=== PATIENT | female | born 1940 | race Caucasian/White ===

== ENCOUNTER → 2017-03-20 | Outpatient (CLI) | payer MEDICARE, BC ==
--- NOTE | 2017-03-21 08:54 | MM ---
Reason for exam: screening (asymptomatic). Last mammogram was performed 1 year ago. History: Patient is postmenopausal. Benign US left guided VAD of the left breast, September 01, 2008. Benign stereotactic core biopsy of the right breast, January 12, 2001. Benign core biopsy of the right breast. Benign excisional biopsy of the right breast. Took estrogen for 12 years beginning at age 49. Took progesterone for 12 years beginning at age 49. Physical Findings: A clinical breast exam by your physician is recommended on an annual basis and results should be correlated with mammographic findings. MG 3D Screening Mammo W/Cad Bilateral CC and MLO view(s) were taken. Prior study comparison: March 17, 2016, bilateral MG 3d screening mammo w/cad. March 11, 2015, bilateral MG screening mammo w CAD. Previous mammotome biopsy in the right and left breast. Stable asymmetric density in the right upper outer quadrant. ASSESSMENT: Benign, BI-RAD 2 RECOMMENDATION: Routine screening mammogram of both breasts in 1 year.
== END | disposition home or self-care (01) ==
LOC: RADMAMWWP 10:55
PROVIDERS: ATTEND Obstetrics & Gynecology
DX: Z12.31 Encounter for screening mammogram for malignant neoplasm of breast (principal)
CPT/HCPCS: 77063; G0202

== ENCOUNTER → 2018-05-21 | Outpatient (CLI) | payer MEDICARE, BC ==
--- NOTE | 2018-05-23 10:59 | MM ---
Reason for exam: screening (asymptomatic). Last mammogram was performed 1 year and 2 months ago. History: Patient is postmenopausal. Benign US left guided VAD of the left breast, September 01, 2008. Benign stereotactic core biopsy of the right breast, January 12, 2001. Benign core biopsy of the right breast. Benign excisional biopsy of the right breast. Took estrogen for 12 years beginning at age 49. Took progesterone for 12 years beginning at age 49. Physical Findings: A clinical breast exam by your physician is recommended on an annual basis and results should be correlated with mammographic findings. MG 3D Screening Mammo W/Cad Bilateral CC and MLO view(s) were taken. Prior study comparison: March 20, 2017, bilateral MG 3d screening mammo w/cad. March 17, 2016, bilateral MG 3d screening mammo w/cad. There are scattered fibroglandular densities. Previous mammotome biopsy in the right and left breast. Focal asymmetry in the right upper outer quadrants, unchanged. No significant changes when compared with prior studies. ASSESSMENT: Negative, BI-RAD 1 RECOMMENDATION: Routine screening mammogram of both breasts in 1 year.
== END | disposition home or self-care (01) ==
LOC: RADMAMWWP 14:39
PROVIDERS: ATTEND Obstetrics & Gynecology
DX: Z12.31 Encounter for screening mammogram for malignant neoplasm of breast (principal)
CPT/HCPCS: 77063; 77067

== ENCOUNTER → 2019-06-21 | Outpatient (CLI) | payer MEDICARE, BC ==
--- NOTE | 2019-06-24 14:09 | MM ---
Reason for exam: screening (asymptomatic). Last mammogram was performed 1 year and 1 month ago. History: Patient is postmenopausal. Benign US left guided VAD of the left breast, September 01, 2008. Benign stereotactic core biopsy of the right breast, January 12, 2001. Benign core biopsy of the right breast. Benign excisional biopsy of the right breast. Took estrogen for 12 years beginning at age 49. Took progesterone for 12 years beginning at age 49. Physical Findings: A clinical breast exam by your physician is recommended on an annual basis and results should be correlated with mammographic findings. MG 3D Screening Mammo W/Cad Bilateral CC and MLO view(s) were taken. XCCL view(s) were taken of the right breast. Prior study comparison: May 21, 2018, bilateral MG 3d screening mammo w/cad. March 20, 2017, bilateral MG 3d screening mammo w/cad. The breast tissue is heterogeneously dense. This may lower the sensitivity of mammography. There are benign appearing round calcifications in the right breast. Previous mammotome biopsy in the right and left breast. Asymmetric breast tissue right upper stable outer aspect. There is no discrete abnormality. Benign vascular calcifications in the left breast. ASSESSMENT: Benign, BI-RAD 2 RECOMMENDATION: Routine screening mammogram of both breasts in 1 year.
== END | disposition home or self-care (01) ==
LOC: RADMAMWWP 11:33
PROVIDERS: ATTEND Obstetrics & Gynecology
DX: Z12.31 Encounter for screening mammogram for malignant neoplasm of breast (principal)
CPT/HCPCS: 77063; 77067

== ENCOUNTER → 2021-11-19 | Outpatient (CLI) | payer MEDICARE, BC ==
--- NOTE | 2021-11-19 14:06 | BD ---
EXAMINATION TYPE: Axial Bone Density DATE OF EXAM: 11/19/2021 COMPARISON: FIRST BONE DENSITY AT [facility].... CLINICAL HISTORY: 80 years year old Female. ICD-10 CODE: OSTEOPOROSIS M810 Height: 61.8 Weight: 118 FRAX RISK QUESTIONS: History of Fracture in Adulthood: YES RISK FACTORS HISTORY OF: LT ANKLE FRACTURE THIS YEAR, CASTED Family History of Osteoporosis: UNKNOWN Postmenopausal woman: YES, AT AGE 49 YRS OLD Take estrogen and/or progesterone medications: YES, FOR ABOUT 10 YRS, NONE NOW Hyperparathyroidism: NO Adrenal Insufficiency: NO MEDICATIONS: Additional Medications: BP MEDS, XANAX, REFLUX MEDS, CHOLESTEROL MEDS, CALCIUM AND MULTIVITAMIN Additional History: HYPERTENSION, ANXIETY, REFLUX, CHOLESTEROL, ARTHRITIS EXAM MEASUREMENTS: Bone mineral densitometry was performed using the [employer] System. Bone mineral density as measured about the Lumbar spine is: ----- L1-L4(G/cm2): 0.987 T Score Values are as follows: ----- L1: -1.8 ----- L2: -1.5 ----- L3: -1.6 ----- L4: -1.8 ----- L1-L4: -1.6 Bone mineral density FIRST AT [facility] Bone mineral density about the R hip (g/cm2): 0.686 Bone mineral density about the L hip (g/cm2): 0.676 T Score values are as follows: -----R Neck: -2.3 -----L Neck: -2.3 -----R Total: -2.6 -----L Total: -2.6 Bone mineral density NEW TO [facility] FRAX%s: The graph provided illustrates a 22.8% chance for a major osteoporotic fx and a 7.2% chance f or the hips probability for fx in 10 years time. IMPRESSION: Osteoporosis NOTE: T-SCORE=SD OF THE YOUNG ADULT MEAN.
--- NOTE | 2021-11-22 11:45 | MM ---
Reason for Exam: Screening (asymptomatic). Last mammogram was performed 2 year(s) and 5 month(s) ago. Patient History: Menarche at age 13. First Full-Term at age 25. Postmenopausal. Estrogen for 12 years from age 49 until age 61. Progesterone for 12 years from age 49 until age 61. Benign Core Biopsy on the right side. Benign Excisional Biopsy on the right side. 09/01/2008, Benign Core Biopsy on the left side. 01/12/2001, Benign Stereotactic Core Biopsy on the right side. Risk Values: Lorena 5 year model risk: 2.5%. NCI Lifetime model risk: 4.5%. Prior Study Comparison: 03/20/2017 Bilateral Screening Mammogram, [facility]. 05/21/2018 Bilateral Screening Mammogram, [facility]. 06/21/2019 Bilateral Screening Mammogram, [facility]. Tissue Density: The breast tissue is heterogeneously dense. This may lower the sensitivity of mammography. Findings: Analyzed By CAD. There is no suspicious group of microcalcifications or new suspicious mass in either breast. Stable asymmetric breast tissue upper outer right breast. Overall Assessment: Benign, BI-RAD 2 Management: Screening Mammogram of both breasts in 1 year. A clinical breast exam by your physician is recommended on an annual basis and results should be correlated with mammographic findings. Electronically signed and approved by: Shiv Antonio M.D. Radiologis
== END | disposition home or self-care (01) ==
LOC: RADBDWWP 12:53
PROVIDERS: ATTEND Internal Medicine Geriatric Medicine
DX: Z12.31 Encounter for screening mammogram for malignant neoplasm of breast (principal); M81.0 Age-related osteoporosis without current pathological fracture
CPT/HCPCS: 77063; 77067; 77080

== ENCOUNTER → 2022-09-05 | Outpatient (CLI) | payer MEDICARE, BC ==
--- NOTE | 2022-09-06 07:20 | MR ---
EXAMINATION TYPE: MR iac wo/w con DATE OF EXAM: 09/05/2022 COMPARISON: CT brain July 10, 2022 HISTORY: Bilateral ear pain, hearing loss TECHNIQUE: Multiplanar, multisequence images of the brain and brainstem is performed without and with IV contras t, utilizing 5.5 mL intravenous Gadavist . FINDINGS: Diffusion weighted images demonstrate no evidence of a recent infarct or other diffusion ab normality. There is mild ventricular and sulcal prominence. No significant white matter changes. No s uspicious extra-axial fluid collection. Midline structures demonstrate normal morphology. The craniocervical junction appears within normal limits. Normal vascular signal voids are seen. The visualized sinuses are clear and the globes are in tact. Patchy fluid in the left mastoid air cells is present. The vestibulocochlear complexes are symmetric and felt within normal limits. There is no suspicious enhancing cerebellopontine angle mass identifie d bilaterally. IMPRESSION: 1. Patchy fluid left mastoid air cells raises concern for left-sided mastoiditis in the appropriate c linical setting, correlate clinically.
== END | disposition home or self-care (01) ==
LOC: RADMRIMAIN 15:09
PROVIDERS: ATTEND Otolaryngology
DX: H91.92 Unspecified hearing loss, left ear (principal)
CPT/HCPCS: 70553; A9585

== ENCOUNTER → 2022-11-22 | Outpatient (CLI) | payer MEDICARE, BC ==
--- NOTE | 2022-11-23 16:36 | MM ---
Reason for Exam: Screening (asymptomatic). Last screening mammogram was performed 12 month(s) ago. Patient History: Menarche at age 13. First Full-Term at age 25. Postmenopausal. Estrogen for 12 years from age 49 until age 61. Progesterone for 12 years from age 49 until age 61. Benign Core Biopsy on the right side. Benign Excisional Biopsy on the right side. 09/01/2008, Benign Core Biopsy on the left side. 01/12/2001, Benign Stereotactic Core Biopsy on the right side. Risk Values: Lorena 5 year model risk: 2.5%. NCI Lifetime model risk: 4.1%. Prior Study Comparison: 05/21/2018 Bilateral Screening Mammogram, [facility]. 06/21/2019 Bilateral Screening Mammogram, [facility]. 11/19/2021 Bilateral MG 3D screening mammo w/cad, [facility]. Tissue Density: There are scattered fibroglandular densities. Findings: Analyzed By CAD. Pattern appears stable. Focal asymmetries are outer aspects of bilateral breast. Core markers within the outer left breast upper portion of the right breast. No suspicious groups of microcalcifications, spiculated or lobular masses, architectural distortion or other secondary signs of malignancy are mammographically apparent. Overall Assessment: Benign, BI-RAD 2 Management: Screening Mammogram of both breasts in 1 year. A negative mammogram report should not preclude additional follow up of suspicious palpable abnormalities. Patient should continue monthly self breast exam. A clinical breast exam by your physician is recommended on an annual basis and results should be correlated with mammographic findings. Electronically signed and approved by: Yasir Graves D.O. Radiologis
== END | disposition home or self-care (01) ==
LOC: RADMAMWWP 13:06
PROVIDERS: ATTEND Internal Medicine Geriatric Medicine
DX: Z12.31 Encounter for screening mammogram for malignant neoplasm of breast (principal); Z78.0 Asymptomatic menopausal state
CPT/HCPCS: 77063; 77067

== ENCOUNTER → 2023-11-24 | Outpatient (CLI) | payer MEDICARE, BC ==
--- NOTE | 2023-11-27 13:23 | MM ---
Reason for Exam: Screening (asymptomatic). Last screening mammogram was performed 12 month(s) ago. Patient History: Menarche at age 13. First Full-Term at age 25. Postmenopausal. Estrogen for 12 years from age 49 until age 61. Progesterone for 12 years from age 49 until age 61. Benign Core Biopsy on the right side. Benign Excisional Biopsy on the right side. 09/01/2008, Benign Core Biopsy on the left side. 01/12/2001, Benign Stereotactic Core Biopsy on the right side. Risk Values: Lorena 5 year model risk: 2.4%. NCI Lifetime model risk: 3.7%. Prior Study Comparison: 06/21/2019 Bilateral Screening Mammogram, [facility]. 11/19/2021 Bilateral MG 3D screening mammo w/cad, [facility]. 11/22/2022 Bilateral MG 3D screening mammo w/cad, [facility]. Tissue Density: There are scattered areas of fibroglandular density. Findings: Analyzed By CAD. Bilateral breast biopsy clips. Right breast: There is no suspicious group of microcalcifications or new suspicious mass. Left breast: There is no suspicious group of microcalcifications or new suspicious mass. Overall Assessment: Negative, BI-RAD 1 Management: Screening Mammogram of both breasts in [address] [facility] will attempt to contact patient to return for supplemental views and ultrasound if indicated. Patient should continue monthly self-breast exams. A clinical breast exam by your physician is recommended on an annual basis. This exam should not preclude additional follow-up of suspicious palpable abnormalities. Note on Lorena scores and lifetime risk: 1. A Lorena score greater than 3% is considered moderate risk. If this is the case, consider specialist referral to assess eligibility for a risk reducing agent. 2. If overall lifetime risk for the development of breast cancer is 20% or higher, the patient may qualify for future screening with alternating mammogram and breast MRI. Electronically signed and approved by: David Prakash DO
--- NOTE | 2023-11-28 15:40 | BD ---
EXAMINATION TYPE: Axial Bone Density DATE OF EXAM: 11/24/2023 CLINICAL HISTORY: 82 years old Female. ICD-10 CODE: M81.0 AGE RELATED OSTEO Height: 61.25" Weight: 122.8lbs FRAX RISK QUESTIONS: Alcohol (3 or more units per day): No Family History (Parent hip fracture): Unknown Glucocorticoids (More than 3mos): No (Ex: prednisone, prednisolone, methylprednisolone, dexamethasone, and hydrocortisone). History of Fracture in Adulthood: No Secondary Osteoporosis: 1. Type 1 Diabetes: No 2. Hyperthyroidism: No 3. Menopause before 45: No 4. Malnutrition: No 5. Chronic liver disease: No Rheumatoid Arthritis: No Current Tobacco Use: No RISK FACTORS HISTORY OF: Hip Fracture (Right/Left): No Spine Fracture: No History of Wrist Fracture: No Surgery to Spine/Hip(right/left)/Wrist (right/left): No MEDICATIONS: Thyroid Medications: No Osteoporosis Medications: No EXAM MEASUREMENTS: Bone mineral densitometry was performed using the [employer] System. Bone mineral density as measured about the Lumbar spine is: ----- L1-L4(G/cm2): 0.995 T Score Values are as follows: ----- L1: -1.8 ----- L2: -1.6 ----- L3: -1.0 ----- L4: -1.9 ----- L1-L4: -1.5 Z Score Values are as follows: ----- L1: 0.3 ----- L2: 0.6 ----- L3: 1.2 ----- L4: 0.3 ----- L1-L4: 0.6 Bone mineral density has: increase 0.8% since study of: 11/19/2021 Bone mineral density about the R hip (g/cm2): 0.709 Bone mineral density about the L hip (g/cm2): 0.689 T Score values are as follows: -----R Neck: -2.2 -----L Neck: -2.0 -----R Total: -2.4 -----L Total: -2.5 Z Score values are as follows: -----R Neck: 0.2 -----L Neck: 0.4 -----R Total: -0.1 -----L Total: -0.3 Bone mineral density has: increased 2.6% since study of: 11/19/2021 FRAX%s: The graph provided illustrates a 16.4% chance for a major osteoporotic fx and a 5.5% chance f or the hips probability for fx in 10 years time. IMPRESSION: Osteoporosis (T Score less than -2.5). There is increased fracture risk and therapy is usually indicated based on age. Re-Screen 1-2 years. NOTE: T-SCORE=SD OF THE YOUNG ADULT MEAN.
== END | disposition home or self-care (01) ==
LOC: RADMAMWWP 13:48
PROVIDERS: ATTEND Internal Medicine Geriatric Medicine
DX: Z12.31 Encounter for screening mammogram for malignant neoplasm of breast (principal); M85.89 Other specified disorders of bone density and structure, multiple sites; M81.0 Age-related osteoporosis without current pathological fracture; Z78.0 Asymptomatic menopausal state
CPT/HCPCS: 77063; 77067; 77080

== ENCOUNTER 2024-07-17 04:57 | Emergency (ER) | payer MEDICARE, BC ==
[2024-07-17 05:10] VITALS: RESP 18
[2024-07-17] MEDS: DIPH,PERTUS(ACELL)TETVAC-LF 0.5 ML VIAL IM ONE (06:05)
[2024-07-17] MEDS: ACETAMINOPHEN TAB 325 MG TAB PO STA (06:07)
[2024-07-17] MEDS: LIDOCAINE 1% INJ 10MG/ML (20 ML MDV) SQ ONE (06:13)
--- NOTE | 2024-07-17 06:15 | CT ---
EXAMINATION TYPE: CT brain cspine wo con DATE OF EXAM: 07/17/2024 COMPARISON: CT brain July 10, 2022 HISTORY: Pt had a fall, laceration to left ear. No LOC or thinners. Headache and neck pain. CT DLP: 1300.6 mGycm. Automated Exposure Control for Dose Reduction was Utilized. TECHNIQUE: CT scan of the head and cervical spine are performed without contrast. FINDINGS: There is no acute intracranial hemorrhage or midline shift identified. [id number] v entricle and sulcal prominence is redemonstrated. Huerta-white matter differentiation appears well main tained. The calvarium is intact. 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 The visualized sinuses are domingo r. Cervical spine is visualized in its entirety from C1 through upper thoracic levels and demonstrates s atisfactory alignment without evidence of acute fracture or dislocation. Prevertebral soft tissue ap pears within normal limits. The C1-C2 articulation is within normal limits on the coronal images. V ertebral body heights are maintained. There is moderate disc space narrowing and disc calcification a t C4-C5 and C6-C7 levels. Axial images show multilevel bilateral facet degenerative changes. Endplate is within normal limits. Lung apices show no pneumothorax. IMPRESSION: 1. There is no acute fracture or dislocation evident in the cervical spine. 2. No acute intracranial hemorrhage or midline shift is seen. [facility], , 07/17/2024 6:13 AM
--- NOTE | 2024-07-17 06:35 | ED ---
Fall HPI - General Chief Complaint: Fall Stated Complaint: Fall- ear laceration Time Seen by Provider: 07/17/24 05:21 Source: patient Mode of arrival: wheelchair - Related Data Home Medications Medication Instructions Recorded Confirmed Omeprazole [PriLOSEC] 20 mg PO BID 05/17/14 10/15/21 Atorvastatin [Lipitor] 40 mg PO DAILY 10/15/21 10/15/21 LORazepam [Ativan] 0.5 mg PO HS 10/15/21 10/15/21 Metoprolol Succinate [Toprol XL] 25 mg PO DAILY 10/15/21 10/15/21 Promethazine HCl 12.5 mg PO BID 10/15/21 10/15/21 Vortioxetine Hydrobromide 20 mg PO DAILY 10/15/21 10/15/21 [Trintellix] polyethylene glycoL 3350 [Miralax] 17 gm PO DAILY 10/15/21 10/15/21 traZODone HCL 100 mg PO HS 10/15/21 10/15/21 Allergies Allergy/AdvReac Type Severity Reaction Status Date / Time lamotrigine [From Lamictal] Allergy Unknown Verified 07/10/22 09:42 latex Allergy Swelling, Verified 07/10/22 09:42 redness aripiprazole [From Abilify] AdvReac Intermediate Unknown Verified 07/10/22 09:42 bismuth subsalicylate AdvReac Nausea & Verified 07/10/22 09:42 [From Helidac] Vomiting metronidazole [From Helidac] AdvReac Nausea & Verified 07/10/22 09:42 Vomiting tetracycline HCl AdvReac Nausea & Verified 07/10/22 09:42 [From Helidac] Vomiting Review of Systems ROS Statement: Those systems with pertinent positive or pertinent negative responses have been documented in the HPI. ROS Other: All systems not noted in ROS Statement are negative. Past Medical History Past Medical History: GERD/Reflux, Hyperlipidemia, Skin Disorder Additional Past Medical History / Comment(s): fell yesterday & hit shepard-covered w/bandage History of Any Multi-Drug Resistant Organisms: None Reported Past Surgical History: Section, Hernia Repair, Tonsillectomy Past Anesthesia/Blood Transfusion Reactions: No Reported Reaction Past Psychological History: Anxiety, Bipolar, Depression Smoking Status: Never smoker Past Alcohol Use History: None Reported Past Drug Use History: None Reported - Past Family History Father History Unknown: Yes Mother History Unknown: Yes General Exam Limitations: no limitations Course Vital Signs 07/17/24 05:06 Temperature 97.6 F Pulse Rate 78 Respiratory 18 Rate Blood Pressure 164/91 O2 Sat by Pulse 99 Oximetry Procedures - Laceration Laceration #1 Consent Obtained: verbal consent Indication: laceration Site: other (ear) Size (cm): 1 Description: linear Depth: simple, single layer Anesthetic Used: lidocaine 1%, without epi Anesthesia Technique: local infiltration Amount (mls): 1 Pre-repair: wound explored, irrigated extensively, deep structures intact Type of Sutures: nylon Size of Sutures: 5-0 Number of Sutures: 3 Technique: simple, interrupted Patient Tolerated Procedure: well Disposition Referrals: Jorge Negron MD [Primary Care Provider] - 1-2 days
--- NOTE | 2024-07-17 06:36 | ED ---
General Adult HPI - General Chief complaint: Fall Stated complaint: Fall- ear laceration Time Seen by Provider: 07/17/24 05:21 Source: patient Mode of arrival: wheelchair Limitations: no limitations - History of Present Illness Initial comments: Patient is an 83-year-old female presenting with her daughter today for ear laceration after ground-level fall at home. Patient tripped and fell, hitting the side of her head on the edge of a countertop just prior to arrival. She did not lose consciousness and sustained a left ear laceration. + Mild MATTHEWS. Denies additional injury or neck pain. Denies changes in vision, numbness, dizziness, slurred speech weakness. She is at her baseline. Is not on blood thinners. - Related Data Home Medications Medication Instructions Recorded Confirmed Omeprazole [PriLOSEC] 20 mg PO BID 05/17/14 10/15/21 Atorvastatin [Lipitor] 40 mg PO DAILY 10/15/21 10/15/21 LORazepam [Ativan] 0.5 mg PO HS 10/15/21 10/15/21 Metoprolol Succinate [Toprol XL] 25 mg PO DAILY 10/15/21 10/15/21 Promethazine HCl 12.5 mg PO BID 10/15/21 10/15/21 Vortioxetine Hydrobromide 20 mg PO DAILY 10/15/21 10/15/21 [Trintellix] polyethylene glycoL 3350 [Miralax] 17 gm PO DAILY 10/15/21 10/15/21 traZODone HCL 100 mg PO HS 10/15/21 10/15/21 Allergies Allergy/AdvReac Type Severity Reaction Status Date / Time lamotrigine [From Lamictal] Allergy Unknown Verified 07/10/22 09:42 latex Allergy Swelling, Verified 07/10/22 09:42 redness aripiprazole [From Abilify] AdvReac Intermediate Unknown Verified 07/10/22 09:42 bismuth subsalicylate AdvReac Nausea & Verified 07/10/22 09:42 [From Helidac] Vomiting metronidazole [From Helidac] AdvReac Nausea & Verified 07/10/22 09:42 Vomiting tetracycline HCl AdvReac Nausea & Verified 07/10/22 09:42 [From Helidac] Vomiting Review of Systems ROS Statement: Those systems with pertinent positive or pertinent negative responses have been documented in the HPI. ROS Other: All systems not noted in ROS Statement are negative. Past Medical History Past Medical History: GERD/Reflux, Hyperlipidemia, Skin Disorder Additional Past Medical History / Comment(s): fell yesterday & hit shepard-covered w/bandage History of Any Multi-Drug Resistant Organisms: None Reported Past Surgical History: Section, Hernia Repair, Tonsillectomy Past Anesthesia/Blood Transfusion Reactions: No Reported Reaction Past Psychological History: Anxiety, Bipolar, Depression Smoking Status: Never smoker Past Alcohol Use History: None Reported Past Drug Use History: None Reported - Past Family History Father History Unknown: Yes Mother History Unknown: Yes General Exam - General Exam Comments Initial Comments: PE: CONSTITUTIONAL: No apparent distress, well appearing SKIN: Warm, dry, no jaundice, hives or petechiae. Small half centimeter to 1 cm fill thickness laceration edge of the left ear mid-pinna, small skin tear to the left forearm EYES: Pupils are equally round, extraocular movements intact without nystagmus, clear conjunctiva, non-icteric sclera HENT: Normocephalic, small contusion just posterior to left ear, no palpable step offs, no hemotypanum , moist mucus membranes, oropharynx clear without exudates NECK: , Full range of motion, normal appearance, no midline spinal tenderness to palpation PULMONARY: Clear to auscultation without wheezes, rhonchi, or rales, normal excursion, no accessory muscle use and no stridor CARDIOVASCULAR: Regular rate, rhythm, normal S1 and S2. No appreciated murmurs, rubs or gallops. Strong radial pulses with intact distal perfusion. No lower extremity edema GASTROINTESTINAL: Soft, active bowel sounds throughout, non-tender, non- distended, no palpable masses, no rebound or guarding. No hepatosplenomegaly MUSCULOSKELETAL: Extremities have no gross deformity or tenderness palpation NEUROLOGIC:_a/o x 3, GCS 15, normal mentation and speech. Moves all extremities x 4 without motor or sensory deficit PSYCHIATRIC:_normal mood and affect, thought process is clear and linear Limitations: no limitations Course Vital Signs 07/17/24 07/17/24 05:06 06:46 Temperature 97.6 F 97.8 F Pulse Rate 78 76 Respiratory 18 18 Rate Blood Pressure 164/91 144/79 O2 Sat by Pulse 99 98 Oximetry Medical Decision Making - Medical Decision Making Was pt. sent in by a medical professional or institution (MARISA Doll, CERTIFIED RECREATIONAL THERAPIST, urgent care, hospital, or intermediate...) When possible be specific @ -No Did you speak to anyone other than the patient for history (EMS, parent, family, police, friend...)? What history was obtained from this source @ -No Did you review nursing and triage notes (agree or disagree)? Why? @ -I reviewed nursing and triage notes Were old charts reviewed (outside hosp., previous admission, EMS record, old EKG, old radiological studies, urgent care reports/EKG's, intermediate records)? Report findings @ -Medical records reviewed Differential Diagnosis (chest pain, altered mental status, abdominal pain women, abdominal pain men, vaginal bleeding, weakness, fever, dyspnea, syncope, headache, dizziness, GI bleed, back pain, seizure, CVA, palpatations, mental health, musculoskeletal)? @Differential diagnosis remains broad however top considerations include laceration, contusion, concussion, skull fracture, traumatic intracranial bleeding, this is not all-inclusive. I have a very low suspicion for traumatic intracranial hemorrhage given physical exam findings, lack of focal neurodeficits, however will obtain CT brain C-spine due to patient's age. EKG interpreted by me (3pts min.). @ -As above X-rays interpreted by me (1pt min.). @ -None done CT interpreted by me (1pt min.). @I personally reviewed patient CT brain, C-spine I see no evidence of skull or cervical spine fracture, hemorrhage or malalignment U/S interpreted by me (1pt. min.). @ -None done What testing was considered but not performed or refused? (CT, X-rays, U/S, labs)? Why? @ -None What meds were considered but not given or refused? Why? @ -None Did you discuss the management of the patient with other professionals (professionals i.e. MARISA Doll, CERTIFIED RECREATIONAL THERAPIST, lab, RT, psych nurse, child welfare social worker, sales relationship manager, teacher, parking regulation enforcement officer, case technician)? Give summary @ -No Was smoking cessation discussed for >3mins.? @ -No Was critical care preformed (if so, how long)? @ -No Were there social determinants of health that impacted care today? How? (Homelessness, low income, unemployed, alcoholism, drug addiction, transportation, low edu. Level, literacy, decrease access to med. care, halfway, rehab)? @ -No Was there de-escalation of care discussed even if they declined (Discuss DNR or withdrawal of care, Hospice)? @ -No What co-morbidities impacted this encounter? (DM, HTN, Smoking, COPD, CAD, Cancer, CVA, ARF, Chemo, Hep., AIDS, mental health diagnosis, sleep apnea, morbid obesity)? @ -None Was patient admitted / discharged? Hospital course, mention meds given and route, prescriptions, significant lab abnormalities, going to OR and other pertinent info. @ -Discharged-patient is a pleasant 83-year-old female presenting with her daughter for ground-level fall sustained left ear laceration, not on thinners. Complete history physical exam are performed. Significant for small laceration to the left ear, bleeding controlled, skin tear to the left forearm and small contusion to the scalp just posterior to the left ear. Discussed with patient and daughter plan for CT brain C-spine, Tdap update, Tylenol for headache, laceration repair. They are agreeable plan of care. Laceration was currently repaired by Toma GARCIA, please see accompanying note. CT brain and C-spine read as no acute process. Updated patient and daughter to findings. They are comfortable discharge home at this time. In my medical judgment there is currently no evidence of an immediate life- threatening or surgical condition. Discharge is therefore indicated at this time. Discharge treatment instructions, follow up instructions, and appropriate emergency department return precautions were discussed with the patient and/or medical decision maker. Patient and/or medical decision maker expressed understanding of and agreed with the treatment plan, follow up instructions, and emergency department return precaution. All patient's and/or medical decision maker's questions were answered. Undiagnosed new problem with uncertain prognosis? @ -No Drug Therapy requiring intensive monitoring for toxicity (Heparin, Nitro, Insulin, Cardizem)? @ -No Were any procedures done? @ -No Diagnosis/symptom? @ Fall, laceration Acute, or Chronic, or Acute on Chronic? acute Uncomplicated (without systemic symptoms) or Complicated (systemic symptoms)? @Uncomplicated Side effects of treatment? @ -No Exacerbation, Progression, or Severe Exacerbation? @ -No Poses a threat to life or bodily function? How? (Chest pain, [place], [place], pneumonia, PE, COPD, DKA, ARF, appy, cholecystitis, CVA, Diverticulitis, Homicidal, Suicidal, threat to staff... and all critical care pts) @ -No Disposition Clinical Impression: Fall, Laceration Disposition: HOME SELF-CARE Condition: Good Instructions (If sedation given, give patient instructions): Care For Your Stitches (ED) Additional Instructions: Every disease is a spectrum and a small chance still exists that a serious condition could develop, for this reason, please monitor yourself closely for new, changing or worsening symptoms, symptoms that persist beyond [48 hours], confusion, severe headache, nausea and vomiting, neck pain, numbness or weakness in your extremities, signs of infection from your wound such as redness, discharge, swelling, increasing pain or [fever], inability to tolerate/keep down fluids or your medications, inability to follow up with outpatient providers as instructed and should you experience these symptoms or should you have any further concerns for your wellbeing please return to the ED or call 911 immediately. Please keep your laceration clean and dry, you can let clean soapy water run over it after 24 hours. Please do not scrub at your wound. Have your sutures removed at a local urgent care, the emergency department or by your primary care provider in 5 to 7 days. PLEASE call your primary care physician as soon as possible to arrange / discuss plan for followup appointment. Appointment in the next 1-3 days is strongly encouraged if possible. PLEASE let us know here before you leave if there is anything further we can do to be of any assistance. Take care and feel Better! Is patient prescribed a controlled substance at d/c from ED?: No Referrals: Jorge Negron MD [Primary Care Provider] - 1-2 days
[2024-07-17 06:47] VITALS: BP 144/79; PULSE 76; TEMP 97.8
== END 2024-07-17 06:46 | disposition home or self-care (01) ==
LOC: EC 04:57
DX: S01.312A Laceration without foreign body of left ear, initial encounter (principal); Z23 Encounter for immunization; Z88.1 Allergy status to other antibiotic agents; Z91.040 Latex allergy status; Z88.8 Allergy status to other drugs, medicaments and biological substances; W01.0XXA Fall on same level from slipping, tripping and stumbling without subsequent striking against object, initial encounter
CPT/HCPCS: 99284; 90471; 12011; 72125; 70450; 90715; J2003

== ENCOUNTER → 2024-12-17 | Outpatient (CLI) | payer MEDICARE, BC ==
--- NOTE | 2024-12-17 12:01 | MM ---
Reason for Exam: Screening (asymptomatic). Last mammogram was performed 1 year(s) and 1 month(s) ago. Patient History: Menarche at age 13. First Full-Term at age 25. Postmenopausal. Estrogen for 12 years from age 49 until age 61. Progesterone for 12 years from age 49 until age 61. Benign Core Biopsy on the right side. Benign Excisional Biopsy on the right side. 09/01/2008, Benign Core Biopsy on the left side. 01/12/2001, Benign Stereotactic Core Biopsy on the right side. Risk Values: Lorena 5 year model risk: 2.4%. NCI Lifetime model risk: 3.4%. Prior Study Comparison: 11/19/2021 Bilateral MG 3D screening mammo w/cad, [facility]. 11/22/2022 Bilateral MG 3D screening mammo w/cad, [facility]. 11/24/2023 Bilateral MG 3D screening mammo w/cad, [facility]. Tissue Density: The breasts are heterogeneously dense, which may obscure small masses. Findings: Analyzed By CAD. Nodular density at the approximate 12:00 position right breast 8.7 cm from the nipple measuring 6 to 7 mm. Additional views recommended. No nodularity within the left breast. Microclip marker seen bilaterally. Benign calcifications are stable. Overall Assessment: Incomplete: need additional imaging evaluation, BI-RAD 0 Management: Diagnostic Mammogram of the right breast. . Patient should continue monthly self-breast exams. A clinical breast exam by your physician is recommended on an annual basis. This exam should not preclude additional follow-up of suspicious palpable abnormalities. Note on Lorena scores and lifetime risk: 1. A Lorena score greater than 3% is considered moderate risk. If this is the case, consider specialist referral to assess eligibility for a risk reducing agent. 2. If overall lifetime risk for the development of breast cancer is 20% or higher, the patient may qualify for future screening with alternating mammogram and breast MRI. [facility], , 12/17/2024 11:25 AM. Electronically signed and approved by: Shiv Antonio M.D. Radiologis
== END | disposition home or self-care (01) ==
LOC: RADMAMWWP 10:49
PROVIDERS: ATTEND Internal Medicine Geriatric Medicine
DX: Z12.31 Encounter for screening mammogram for malignant neoplasm of breast (principal); R92.333 Mammographic heterogeneous density, bilateral breasts; Z78.0 Asymptomatic menopausal state
CPT/HCPCS: 77063; 77067

== ENCOUNTER → 2024-12-19 | Outpatient (CLI) | payer MEDICARE, BC ==
--- NOTE | 2024-12-19 10:59 | MM ---
Reason for Exam: Additional evaluation requested from abnormal screening. Last screening mammogram was performed less than 1 month ago. Patient History: Menarche at age 13. First Full-Term at age 25. Postmenopausal. Estrogen for 12 years from age 49 until age 61. Progesterone for 12 years from age 49 until age 61. Benign Core Biopsy on the right side. Benign Excisional Biopsy on the right side. 09/01/2008, Benign Core Biopsy on the left side. 01/12/2001, Benign Stereotactic Core Biopsy on the right side. Risk Values: Lorena 5 year model risk: 2.4%. NCI Lifetime model risk: 3.4%. Prior Study Comparison: 06/21/2019 Bilateral Screening Mammogram, [facility]. 11/19/2021 Bilateral MG 3D screening mammo w/cad, [facility]. 11/22/2022 Bilateral MG 3D screening mammo w/cad, [facility]. 11/24/2023 Bilateral MG 3D screening mammo w/cad, [facility]. 12/17/2024 Bilateral MG 3D screening mammo w/cad, [facility]. Tissue Density: Right: The breasts are heterogeneously dense, which may obscure small masses. Findings: Analyzed By CAD. Asymmetric density upper outer margin of the right breast stable compared to multiple prior exams. There is a persistent nodule seen in the outer margin of the right breast approximately 3.3 cm from nipple. Overall Assessment: Incomplete: need additional imaging evaluation, BI-RAD 0 Management: Diagnostic Breast Ultrasound of the right breast. . Results were given to the patient verbally at the time of exam. Patient should continue monthly self-breast exams. A clinical breast exam by your physician is recommended on an annual basis. This exam should not preclude additional follow-up of suspicious palpable abnormalities. Note on Lorena scores and lifetime risk: 1. A Lorena score greater than 3% is considered moderate risk. If this is the case, consider specialist referral to assess eligibility for a risk reducing agent. 2. If overall lifetime risk for the development of breast cancer is 20% or higher, the patient may qualify for future screening with alternating mammogram and breast MRI. [facility], , 12/19/2024 10:56 AM. Electronically signed and approved by: Jorge Lundy M.D. Radiologis
--- NOTE | 2024-12-19 11:16 | USB ---
Reason for Exam: Additional evaluation requested from abnormal screening. Patient History: Menarche at age 13. First Full-Term at age 25. Postmenopausal. Estrogen for 12 years from age 49 until age 61. Progesterone for 12 years from age 49 until age 61. Benign Core Biopsy on the right side. Benign Excisional Biopsy on the right side. 09/01/2008, Benign Core Biopsy on the left side. 01/12/2001, Benign Stereotactic Core Biopsy on the right side. Risk Values: Lorena 5 year model risk: 2.4%. NCI Lifetime model risk: 3.4%. Technique: Method: Targeted. Prior Study Comparison: 11/22/2022 Bilateral MG 3D screening mammo w/cad, [facility]. 11/24/2023 Bilateral MG 3D screening mammo w/cad, [facility]. 12/17/2024 Bilateral MG 3D screening mammo w/cad, [facility]. Findings: The lateral section of the breast of the right breast, the axilla of the right breast and the retroareolar of the right breast were scanned. A limited US of right lateral breast, axilla and retro-areolar region were reviewed. There is a complex hypoechoic nodule corresponding to the mammographic abnormality.A limited US of right lateral breast, axilla and retro-areolar region were reviewed. There is a complex hypoechoic nodule corresponding to the mammographic abnormality measuring 7 mm an approximately 2 cm from the nipple. Overall Assessment: Suspicious, BI-RAD 4 Management: Ultrasound Core Biopsy of the right breast. A clinical breast exam by your physician is recommended on an annual basis and results should be correlated with mammographic findings. This exam should not preclude additional follow-up of suspicious palpable abnormalities. Results were given to the patient verbally at the time of exam. [facility], , 12/19/2024 11:14 AM. Electronically signed and approved by: Jorge Lundy M.D. Radiologis
== END | disposition home or self-care (01) ==
LOC: RADMAMWWP 10:30
PROVIDERS: ATTEND Internal Medicine Geriatric Medicine
DX: R92.8 Other abnormal and inconclusive findings on diagnostic imaging of breast (principal); R92.331 Mammographic heterogeneous density, right breast; Z78.0 Asymptomatic menopausal state
CPT/HCPCS: 77065; 76642; G0279; 77061

== ENCOUNTER → 2024-12-26 | Day surgery (SDC) | payer MEDICARE, BC ==
--- NOTE | 2025-01-06 14:19 | MM ---
Reason for Exam: Post Procedure Mammogram. Last screening mammogram was performed less than 1 month ago. Patient History: Menarche at age 13. First Full-Term at age 25. Postmenopausal. Estrogen for 12 years from age 49 until age 61. Progesterone for 12 years from age 49 until age 61. Benign Core Biopsy on the right side. Benign Excisional Biopsy on the right side. 09/01/2008, Benign Core Biopsy on the left side. 01/12/2001, Benign Stereotactic Core Biopsy on the right side. Risk Values: Lorena 5 year model risk: 2.4%. NCI Lifetime model risk: 3.4%. Prior Study Comparison: 11/24/2023 Bilateral MG 3D screening mammo w/cad, [facility]. 12/17/2024 Bilateral MG 3D screening mammo w/cad, [facility]. 12/19/2024 Right US breast workup limited RT, [facility]. 12/19/2024 Right MG 3D work up w/cad RT, [facility]. Tissue Density: Right: The breasts are heterogeneously dense, which may obscure small masses. Pathology Description: Location: 8 o'clock. Marker Left Behind. Needle Type: Mammotome Cores: 4 Skin Nicks: 1 The procedure of ultrasound guided core biopsy was explained to the patient. Benefits, alternatives, and risks were discussed. An informed consent was then obtained. The patient was placed in supine positioning for imaging and for the procedure. The overlying skin was prepped and draped in usual sterile fashion. Lidocaine buffered with bicarbonate was used as anesthetic into the skin and subcutaneous tissue up to area of concern in the right breast. A rory was made with surgical scalpel. Under ultrasound guidance, a 12-gauge vacuum assisted biopsy gun device was used to obtain or core samples. Following this, a biopsy clip was left in lesion. The patient tolerated the procedure well without any immediate complication. The patient was kept in the radiology department for short stay after the procedure and then discharged home in stable condition. Postprocedure mammogram: The patient was transferred to mammography for physician ordered post procedure mammogram for clip placement verification. Post procedure mammogram demonstrates appropriate placement of clip. Impression: Successful, uncomplicated ultrasound guided core biopsy of area of concern in the right breast mass, full pathology results to follow. [facility], , 12/26/2024 8:43 AM. Pathology Results: Result: Benign, Fibrocystic change. Pathology and radiology were reviewed. Findings are concordant. RIGHT BREAST, EIGHT O'CLOCK, CORE BIOPSY: Benign breast with fibrocystic changes including mild usual type ductal hyperplasia. Overall Assessment: Benign Assessment: MG diagnostic mammo RT wo CAD - Right: Benign, BI-RAD 2. Management: Diagnostic Mammogram of the right breast in 6 months. Electronically signed and approved by: Davdi Prakash DO
== END ==
LOC: RADUSWWP 06:58
PROVIDERS: ATTEND Surgery
DX: N60.91 Unspecified benign mammary dysplasia of right breast (principal); Z78.0 Asymptomatic menopausal state
CPT/HCPCS: 77065; 88305